=== PATIENT | female | born 1935 | race Caucasian/White ===

== ENCOUNTER 2020-11-22 22:05 | Emergency (ER) | payer MEDICARE ==
[~2020-11-22] VITALS: Ht 152.4 cm; Wt 47.2 kg
[~2020-11-22 22:05] MED LIST: ALBUTEROL2.5 MG/31 INH; ASPIRIN81 M2 PO; BUDESONIDE0.5 MG/2 M INH; CALCIUM 500 +1 EAC5 PO; CARVEDILOL6.25 MG PO; CHANTIX1 MG PO; COZAAR100 MG PO; CRESTOR20 MG PO; CRESTOR5 MG PO; DOXYCYCLINE 10100 M1 PO; ENABLEX15 MG PO; FISH OIL 1,0001 EAC5 PO; FOSAMAX 70 MG T70 M1 PO; LASIX 20 MG TAB20 MG PO; NORVASC 2.5 MG2.5 M1 PO; NORVASC5 MG PO; PAXIL10 MG PO; PLAVIX 75 MG TA75 M1 PO; PREDNISONE 10 M10 M1 PO; PREDNISONE 20 M20 MG PO; SPIRIVA INH; ZPAK PO
[2020-11-23] MEDS ORDERED: KEFLEX500 M1 PO (03:23)
[2020-11-23] MEDS ORDERED: HYDROCODON-ACE1 EAC7 PO (03:26)
[2020-11-23 03:50] VITALS: BP 140/70
--- NOTE | 2020-11-23 16:13 | EKG ---
[place] [address] ELECTROCARDIOGRAM REPORT Name: NATALIEHILARY OteroLY Ric Room: 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[place] : 1935 Requested By: Coral Grossman Order Number: [id number] Mike MD: Frankie Soto Measurements Intervals [place] Rate: 63 P: 29 AK: 160 QRS: -14 QRSD: 91 T: 54 QT: 410 QTc: 420 Interpretive Statements Sinus rhythm Atrial premature complexes Anteroseptal infarct, old possible No previous ECG available for comparison Electronically Signed On 11-23-2020 16:13:19 FAMILY LAW LEGAL ASSISTANT by Frankie Soto [email or web address] <ELECTRONICALLY SIGNED> By: Frankie Soto MD, [facility] 11/23/20 1613 2316 2316 Frankie Soto MD, FAC /EPI
== END 2020-11-23 03:50 | disposition home or self-care (01) ==
LOC: M.ERS 22:05
DX: S22.42XA Multiple fractures of ribs, left side, initial encounter for closed fracture (principal); S51.012A Laceration without foreign body of left elbow, initial encounter; R55 Syncope and collapse; J44.9 Chronic obstructive pulmonary disease, unspecified; I10 Essential (primary) hypertension; F17.210 Nicotine dependence, cigarettes, uncomplicated; Z91.040 Latex allergy status; Z91.041 Radiographic dye allergy status; Z88.2 Allergy status to sulfonamides; Z79.82 Long term (current) use of aspirin; Z90.710 Acquired absence of both cervix and uterus; W18.30XA Fall on same level, unspecified, initial encounter; Y93.89 Activity, other specified; Y92.091 Bathroom in other non-institutional residence as the place of occurrence of the external cause; Y99.9 Unspecified external cause status

== ENCOUNTER 2021-04-30 17:59 | Emergency (ER) | payer MEDICARE ==
[~2021-04-30] VITALS: Ht 157.5 cm; Wt 46.7 kg
[~2021-04-30 17:59] MED LIST changes: +HYDROCODON-ACE1 EAC7 PO; +KEFLEX500 M1 PO
[2021-04-30 19:46] LABS: ABSOLUTE BASOPHILS 0.1 thou/uL (0.0-0.2); ABSOLUTE EOSINOPHILS 0.3 thou/uL (0.0-0.7); ABSOLUTE LYMPHOCYTES 0.8 thou/uL (0.8-5.3); ABSOLUTE MONOCYTES 0.4 thou/uL (0.0-1.2); ABSOLUTE NEUTROPHILS 4.3 thou/uL (1.6-8.1); BASOPHILS 0.9 %; EOSINOPHILS 5.4 %; HEMATOCRIT 32.1 % (37.0-47.0); LYMPHOCYTES 13.4 %; MCH 34.8 pg (26.0-34.0); MCHC 34.3 g/dL (28.0-37.0); MCV 101.6 fL (80.0-100.0); MONOCYTES 7.1 %; MPV 6.9 fl. (7.2-11.1); NUCLEATED RBCS 0 /100WBC; PLATELET COUNT* 171 thou/uL (150-400); POLYS 73.2 %; RBC 3.16 mil/uL (4.20-5.00); RDW-CV 13.4 % (10.5-14.5); WBC 5.9 thou/uL (4.0-11.0)
[2021-04-30 19:54] LABS: CALCIUM 8.5 mg/dL (8.5-10.1); CREATININE 0.9 mg/dL (0.6-1.3)
[2021-04-30 19:59] LABS: ALBUMIN 3.2 g/dL (3.4-5.0); TOTAL BILIRUBIN 0.3 mg/dL (<0.1-1.0); TOTAL PROTEIN 6.5 g/dL (6.4-8.2)
[2021-04-30 20:03] LABS: URINE BILIRUBIN NEGATIVE (Negative); URINE BLOOD NEGATIVE (Negative); URINE CLARITY CLEAR; URINE COLOR YELLOW; URINE GLUCOSE-RANDOM NEGATIVE (Negative); URINE KETONES TRACE (Negative); URINE LEUKOCYTES-REFLEX NEGATIVE (Negative); URINE NITRITE-REFLEX NEGATIVE (Negative); URINE PROTEIN NEGATIVE (Negative); URINE SPECIFIC GRAVITY 1.025 (1.005-1.030); URINE UROBILINOGEN 0.2 E.U./dl (0.2-1.0)
[2021-04-30 22:33] VITALS: BP 168/84
--- NOTE | 2021-05-01 12:00 | EKG ---
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: : 1935 Requested By: Radha Gómez Order Number: [id number] MD: Aidan Singh Measurements Intervals [place] Rate: 71 P: 69 [place]: 148 QRS: -38 QRSD: 96 T: 66 QT: 431 QTc: 469 Interpretive Statements Sinus rhythm Left axis deviation Compared to ECG 11/22/2020 23:16:25 Left-axis deviation now present Atrial premature complex(es) no longer present Myocardial infarct finding no longer present javascript:perform('study_confirm'); Electronically Signed On 05-01-2021 12:00:34 CDT by Aidan Singh [email or web address] <ELECTRONICALLY SIGNED> By: Aidan Singh MD, FAC 05/01/211199 41 41 Aidan Singh MD, [facility] /EPI
== END 2021-04-30 22:35 | disposition home or self-care (01) ==
LOC: M.ERS 17:59
PROVIDERS: Emergency Medicine
DX: S22.42XA Multiple fractures of ribs, left side, initial encounter for closed fracture (principal); S32.000A Wedge compression fracture of unspecified lumbar vertebra, initial encounter for closed fracture; S01.112A Laceration without foreign body of left eyelid and periocular area, initial encounter; I71.4 Abdominal aortic aneurysm, without rupture; R91.8 Other nonspecific abnormal finding of lung field; J44.9 Chronic obstructive pulmonary disease, unspecified; I10 Essential (primary) hypertension; F17.210 Nicotine dependence, cigarettes, uncomplicated; Z79.899 Other long term (current) drug therapy; Z91.041 Radiographic dye allergy status; Z91.040 Latex allergy status; Z88.2 Allergy status to sulfonamides; Z88.8 Allergy status to other drugs, medicaments and biological substances; W18.39XA Other fall on same level, initial encounter; Y93.89 Activity, other specified; Y92.89 Other specified places as the place of occurrence of the external cause; Y99.8 Other external cause status

== ENCOUNTER 2021-06-13 09:38 | Emergency (ER) | payer MEDICARE ==
[~2021-06-13] VITALS: Ht 157.5 cm; Wt 45.4 kg
[2021-06-13 10:13] VITALS: BP 207/102
== END 2021-06-13 11:19 | disposition left against medical advice (07) ==
LOC: M.ERS 09:38
DX: S41.111A Laceration without foreign body of right upper arm, initial encounter (principal); Z53.21 Procedure and treatment not carried out due to patient leaving prior to being seen by health care provider; X58.XXXA Exposure to other specified factors, initial encounter; Y93.89 Activity, other specified; Y92.89 Other specified places as the place of occurrence of the external cause; Y99.8 Other external cause status